=== PATIENT | female | born 1935 | race African-American/Black ===

== ENCOUNTER 2019-03-24 04:58 | Inpatient (IN) ==
[2019-03-24] MEDS ORDERED: FUROSEMIDE 100 MG/10 ML VIAL ONE (06:13)
[2019-03-24] MEDS ORDERED: FUROSEMIDE 100 MG/10 ML VIAL IV STA (06:21)
[2019-03-24 06:34] LABS: Basophils % 0.3 % (0.0-0.8); Eosinophils # 0.2 10*3/uL (0.0-0.87); Immature Granulocytes % 0.6 %; Immature Granulocytes Absolute 0.05 #; Lymphocytes # 2.8 10*3/uL (1.4-4.0); Lymphocytes % 35.7 % (21.3-54.2); Mean Corpuscular HGB Conc 29.5 GM/DL (32-36); Mean Corpuscular Volume 89.1 FL (87-102); Mean Platelet Volume 12.6 FL (9.6-12.0); Monocytes % 17.3 % (1.7-12.7); Neutrophils % 43.1 % (38.7-73.9); Platelet Count 174 T/CUMM (130-400); Red Blood Count 4.49 MC/CUMM (3.8-5.5); White Blood Count 7.8 T/CUMM (4-12)
[2019-03-24 06:38] LABS: Albumin 3.7 G/DL (3.4-5.0); Bilirubin,Total 0.5 MG/DL (0.2-1.0); Calcium 9.9 MG/DL (8.5-10.1); Osmolality,Calculated 283.4 MOS/KG (273-304); Total Protein 8.4 G/DL (6.4-8.3)
[2019-03-24 06:40] LABS: Hemoglobin 11.8 GM/DL (12.0-16.0)
[2019-03-24] MEDS ORDERED: NITROGLYCERIN 2% OINT 1 INCH/GM PACK TOP STA (06:50)
[2019-03-24] MEDS ORDERED: NITROGLYCERIN 2% OINT 1 INCH/GM PACK TOP ONE (06:51)
[2019-03-24 06:54] LABS: Eosinophils 2 % (0-10); Hypochromasia 1+; Lymphocytes 36 % (20-55); Platelet Estimate Adequate; Segmented Neutrophils 45 % (50-85); Total Cells Counted 100
[2019-03-24] MEDS ORDERED: LEVOFLOXACIN INJ 500 MG in PREMIX 1 EACH IV STA (07:30)
[2019-03-24] MEDS ORDERED: NALOXONE 0.4 MG/ML VIAL IV PRN (08:06)
[2019-03-24] MEDS ORDERED: MORPHINE 4 MG/1 ML VIAL IV PRN (08:06)
[2019-03-24] MEDS ORDERED: MORPHINE 4 MG/1 ML VIAL ONE (08:07)
[2019-03-24] MEDS ORDERED: ONDANSETRON 4 MG/2 ML VIAL ONE (08:07)
[2019-03-24] MEDS ORDERED: MORPHINE 4 MG/1 ML VIAL IV STA (08:12)
[2019-03-24] MEDS ORDERED: ONDANSETRON 4 MG/2 ML VIAL IV STA (08:12)
[2019-03-24] MEDS ORDERED: SODIUM CHLORIDE 0.9% 250 ML IV STA (08:24)
[2019-03-24] MEDS ORDERED: cloNIDine 0.1 MG TABLET PO SCH (09:00)
[2019-03-24] MEDS ORDERED: cloNIDine 0.1 MG TABLET ONE (09:30)
[2019-03-24] MEDS: DOCUSATE SODIUM 100 MG CAPSULE PO SCH ×2 (09:32→21:07)
[2019-03-24] MEDS: ENOXAPARIN 40 MG/0.4 ML SYRINGE SUBCUT SCH (09:32)
[2019-03-24] MEDS: PANTOPRAZOLE 40 MG TABLET PO SCH (09:32)
[2019-03-24] MEDS: amLODIPine 5 MG TABLET PO SCH (09:32)
[2019-03-24] MEDS: DORZOLAMIDE 2% OPH SOLN 10 ML BOTTLE BOTH EYES SCH ×3 (10:15→21:10)
[2019-03-24] MEDS: BRIMONIDINE 0.2% OPH SOLN 5 ML BOTTLE BOTH EYES SCH ×2 (10:15→21:10)
[2019-03-24 10:43] LABS: Troponin I < 0.015 NG/ML (0.00-0.045)
[2019-03-24 11:44] LABS: Apearance,Urine Cloudy (Clear); Urine Color Red (Yellow)
[2019-03-24 11:45] LABS: Bilirubin,Urine Negative (Negative); Blood, Urine Large mg/dL (Negative); Glucose,Urine (UA) Negative (Negative); Ketones,Urine Negative (Negative); Nitrite,Urine Negative (Negative); Protein,Urine 2+ MG/DL; RBC,Urine TNTC /HPF (0-4); Urine Specific Gravity 1.015 (1.001-1.035); Urine Urobilinogen < 2.0 EU/DL (0.2-1.0); WBC,Urine Occasional /HPF (0-6)
[2019-03-24 11:46] LABS: Bacteria,Urine Few /HPF (Few); Squamous Epithelial Cell,Urine Rare /HPF (0-10)
[2019-03-24] MEDS ORDERED: FUROSEMIDE 40 MG/4 ML VIAL ONE (14:49)
[2019-03-24 15:06] LABS: Troponin I < 0.015 NG/ML (0.00-0.045)
[2019-03-24] MEDS: ONDANSETRON 4 MG/2 ML VIAL IV PRN (15:06)
[2019-03-24] MEDS: FUROSEMIDE 40 MG/4 ML VIAL IV SCH (15:08)
[2019-03-24] MEDS ORDERED: LORazepam 2 MG/1 ML VIAL IV PRN (16:11)
[2019-03-24] MEDS: ALBUTEROL 2.5 MG/3 ML NEB RESP TX PRN ×2 (17:05→20:25)
[2019-03-24] MEDS: methylPREDNISolone SOD SUC 40 MG/1 ML VIAL IV SCH (17:38)
[2019-03-24 18:14] LABS: Troponin I < 0.015 NG/ML (0.00-0.045)
[2019-03-24] MEDS: ALBUTEROL/IPRATROPIUM 3 ML NEB RESP TX SCH (23:55)
[2019-03-25] MEDS: methylPREDNISolone SOD SUC 40 MG/1 ML VIAL IV SCH ×3 (01:28→17:40)
[2019-03-25] MEDS: ALBUTEROL/IPRATROPIUM 3 ML NEB RESP TX SCH ×2 (03:40→07:25)
[2019-03-25 05:18] LABS: Calcium 9.2 MG/DL (8.5-10.1); Osmolality,Calculated 293.4 MOS/KG (273-304); Risk Ratio 2.01; VLDL CHOLESTEROL 16.2 MG/DL
[2019-03-25] MEDS: ENOXAPARIN 40 MG/0.4 ML SYRINGE SUBCUT SCH (10:02)
[2019-03-25] MEDS: DOCUSATE SODIUM 100 MG CAPSULE PO SCH ×2 (10:03→21:13)
[2019-03-25] MEDS: PANTOPRAZOLE 40 MG TABLET PO SCH (10:03)
[2019-03-25] MEDS: amLODIPine 5 MG TABLET PO SCH (10:03)
[2019-03-25] MEDS: BRIMONIDINE 0.2% OPH SOLN 5 ML BOTTLE BOTH EYES SCH ×2 (10:05→21:14)
[2019-03-25] MEDS: DORZOLAMIDE 2% OPH SOLN 10 ML BOTTLE BOTH EYES SCH ×3 (10:05→21:14)
[2019-03-25] MEDS: FUROSEMIDE 40 MG/4 ML VIAL IV SCH ×2 (10:14→17:37)
[2019-03-25] MEDS: ACETAMINOPHEN 325 MG TABLET PO PRN (21:14)
[2019-03-25] MEDS: ONDANSETRON 4 MG/2 ML VIAL IV PRN (21:15)
[2019-03-26] MEDS: methylPREDNISolone SOD SUC 40 MG/1 ML VIAL IV SCH ×4 (03:02→21:35)
[2019-03-26 05:40] LABS: Basophils % 0.2 % (0.0-0.8); Hematocrit 39.3 VOL% (35.7-47.0); Hemoglobin 11.7 GM/DL (12.0-16.0); Immature Granulocytes % 0.7 %; Immature Granulocytes Absolute 0.09 #; Lymphocytes # 0.9 10*3/uL (1.4-4.0); Lymphocytes % 7.5 % (21.3-54.2); Mean Corpuscular HGB Conc 29.8 GM/DL (32-36); Mean Corpuscular Volume 89.1 FL (87-102); Mean Platelet Volume 12.3 FL (9.6-12.0); Monocytes % 5.4 % (1.7-12.7); Neutrophils % 86.2 % (38.7-73.9); Platelet Count 196 T/CUMM (130-400); Red Blood Count 4.41 MC/CUMM (3.8-5.5); Red Cell Distribution Width 12.9 % (9.3-17.3); White Blood Count 12.2 T/CUMM (4-12)
[2019-03-26 05:50] LABS: Calcium 9.4 MG/DL (8.5-10.1); Osmolality,Calculated 289.8 MOS/KG (273-304)
[2019-03-26] MEDS: ENOXAPARIN 30 MG/0.3 ML SYRINGE SUBCUT SCH (09:14)
[2019-03-26] MEDS: amLODIPine 5 MG TABLET PO SCH (09:14)
[2019-03-26] MEDS: PANTOPRAZOLE 40 MG TABLET PO SCH (09:14)
[2019-03-26] MEDS: DOCUSATE SODIUM 100 MG CAPSULE PO SCH ×2 (09:14→21:36)
[2019-03-26] MEDS: FUROSEMIDE 40 MG/4 ML VIAL IV SCH (09:15)
[2019-03-26] MEDS: DORZOLAMIDE 2% OPH SOLN 10 ML BOTTLE BOTH EYES SCH ×3 (09:15→21:36)
[2019-03-26] MEDS: BRIMONIDINE 0.2% OPH SOLN 5 ML BOTTLE BOTH EYES SCH ×2 (09:15→21:36)
[2019-03-26] MEDS: ALBUTEROL 2.5 MG/3 ML NEB RESP TX PRN (10:40)
[2019-03-26 11:34] LABS: ABG Base Excess 5.2 MMOL/L (-2.5-2.5); ABG HCO3 28.9 MMOL/L (20-26); ABG Oxygen Saturation 84.6 % (95-100); ABG PCO2 65.7 MM HG (35-48); ABG PH 7.317 (7.35-7.45); ABG PO2 51.1 MM HG (80-95); ABG TCO2 30.3 MMOL/L (23-27)
[2019-03-26] MEDS: ALBUTEROL/IPRATROPIUM 3 ML NEB RESP TX SCH ×3 (11:37→19:00)
[2019-03-26] MEDS: SODIUM CHLORIDE 0.9% 1,000 ML IV SCH (13:49)
[2019-03-26] MEDS: BUDESONIDE 0.25 MG/2 ML NEB RESP TX SCH (19:00)
[2019-03-27] MEDS: ALBUTEROL/IPRATROPIUM 3 ML NEB RESP TX SCH ×4 (00:31→19:14)
[2019-03-27 04:36] LABS: Basophils % 0.2 % (0.0-0.8); Hemoglobin 10.6 GM/DL (12.0-16.0); Immature Granulocytes % 1.2 %; Immature Granulocytes Absolute 0.11 #; Lymphocytes # 0.8 10*3/uL (1.4-4.0); Lymphocytes % 8.2 % (21.3-54.2); Mean Corpuscular HGB Conc 30.3 GM/DL (32-36); Mean Corpuscular Volume 88.8 FL (87-102); Mean Platelet Volume 12.5 FL (9.6-12.0); Monocytes % 4.6 % (1.7-12.7); Neutrophils % 85.8 % (38.7-73.9); Platelet Count 183 T/CUMM (130-400); Red Blood Count 3.94 MC/CUMM (3.8-5.5); Red Cell Distribution Width 13.1 % (9.3-17.3); White Blood Count 9.5 T/CUMM (4-12)
[2019-03-27 05:01] LABS: Calcium 9.3 MG/DL (8.5-10.1); Osmolality,Calculated 304.7 MOS/KG (273-304)
[2019-03-27] MEDS: ACETAMINOPHEN 325 MG TABLET PO PRN ×2 (05:02→21:30)
[2019-03-27] MEDS: SODIUM CHLORIDE 0.9% 1,000 ML IV SCH ×2 (05:05→21:35)
[2019-03-27] MEDS ORDERED: DEXTROSE 50% 25 GM/50 ML VIAL IV PRN (05:28)
[2019-03-27] MEDS ORDERED: GLUCAGON 1 MG VIAL IM PRN (05:28)
[2019-03-27] MEDS: methylPREDNISolone SOD SUC 40 MG/1 ML VIAL IV SCH ×3 (05:41→21:31)
[2019-03-27 05:54] LABS: Alanine Aminotransferase 31 U/L (13-56); Alkaline Phosphatase 61 U/L (45-117); Aspartate Amino Transferase 46 U/L (0-37); Bilirubin,Total < 0.39 MG/DL (0.2-1.0); Blood Urea Nitrogen 68 MG/DL (7-18); Glucose 276 MG/DL (74-106)
[2019-03-27] MEDS: BUDESONIDE 0.25 MG/2 ML NEB RESP TX SCH ×2 (07:03→19:14)
[2019-03-27] MEDS: ENOXAPARIN 30 MG/0.3 ML SYRINGE SUBCUT SCH (08:50)
[2019-03-27] MEDS: amLODIPine 5 MG TABLET PO SCH (08:51)
[2019-03-27] MEDS: DORZOLAMIDE 2% OPH SOLN 10 ML BOTTLE BOTH EYES SCH ×3 (08:51→21:43)
[2019-03-27] MEDS: DOCUSATE SODIUM 100 MG CAPSULE PO SCH ×2 (08:51→21:30)
[2019-03-27] MEDS: BRIMONIDINE 0.2% OPH SOLN 5 ML BOTTLE BOTH EYES SCH ×3 (08:51→21:43)
[2019-03-27] MEDS: FUROSEMIDE 40 MG/4 ML VIAL IV SCH (08:51)
[2019-03-27] MEDS: PANTOPRAZOLE 40 MG TABLET PO SCH (08:51)
[2019-03-27] MEDS: INSULIN REGULAR 100 UNIT/ML SUBCUT SCH ×4 (09:10→21:31)
[2019-03-27 10:24] LABS: ABG PH 7.278 (7.35-7.45); ABG PO2 86.5 MM HG (80-95); ABG TCO2 30.1 MMOL/L (23-27)
[2019-03-27 10:26] LABS: ABG PCO2 70.7 MM HG (35-48)
[2019-03-27] MEDS: ONDANSETRON 4 MG/2 ML VIAL IV PRN (21:35)
[2019-03-28] MEDS: ALBUTEROL/IPRATROPIUM 3 ML NEB RESP TX SCH ×4 (00:51→19:23)
[2019-03-28 04:57] LABS: ABG Base Excess 3.9 MMOL/L (-2.5-2.5); ABG HCO3 27.6 MMOL/L (20-26); ABG PH 7.224 (7.35-7.45); ABG PO2 55.8 MM HG (80-95); ABG TCO2 31.9 MMOL/L (23-27); Allen Test Positive
[2019-03-28 05:07] LABS: ABG PCO2 83.9 MM HG (35-48)
[2019-03-28] MEDS: methylPREDNISolone SOD SUC 40 MG/1 ML VIAL IV SCH ×4 (05:32→23:34)
[2019-03-28 05:50] LABS: Osmolality,Calculated 310.8 MOS/KG (273-304)
[2019-03-28 06:22] LABS: Basophils % 0.2 % (0.0-0.8); Hematocrit 35.8 VOL% (35.7-47.0); Hemoglobin 10.6 GM/DL (12.0-16.0); Immature Granulocytes % 2.1 %; Immature Granulocytes Absolute 0.24 #; Lymphocytes # 0.8 10*3/uL (1.4-4.0); Lymphocytes % 6.7 % (21.3-54.2); Mean Corpuscular HGB Conc 29.6 GM/DL (32-36); Mean Corpuscular Volume 90.2 FL (87-102); Monocytes % 4.4 % (1.7-12.7); Neutrophils % 86.6 % (38.7-73.9); Platelet Count 178 T/CUMM (130-400); Red Blood Count 3.97 MC/CUMM (3.8-5.5); Red Cell Distribution Width 13.1 % (9.3-17.3); White Blood Count 11.3 T/CUMM (4-12)
[2019-03-28 06:27] LABS: Hypochromasia 1+; Ovalocytes Slight; Platelet Estimate Adequate
[2019-03-28 07:44] VITALS: BP 160/97
[2019-03-28] MEDS: BUDESONIDE 0.25 MG/2 ML NEB RESP TX SCH ×2 (07:49→19:23)
[2019-03-28] MEDS: INSULIN REGULAR 100 UNIT/ML SUBCUT SCH ×4 (08:20→20:44)
[2019-03-28] MEDS: FUROSEMIDE 40 MG/4 ML VIAL IV SCH (08:20)
[2019-03-28] MEDS: ENOXAPARIN 30 MG/0.3 ML SYRINGE SUBCUT SCH (08:21)
[2019-03-28] MEDS: DORZOLAMIDE 2% OPH SOLN 10 ML BOTTLE BOTH EYES SCH ×3 (08:21→20:44)
[2019-03-28] MEDS: PANTOPRAZOLE 40 MG TABLET PO SCH (08:21)
[2019-03-28] MEDS: DOCUSATE SODIUM 100 MG CAPSULE PO SCH ×2 (08:21→20:43)
[2019-03-28] MEDS: BRIMONIDINE 0.2% OPH SOLN 5 ML BOTTLE BOTH EYES SCH ×2 (08:21→22:19)
[2019-03-28] MEDS: amLODIPine 5 MG TABLET PO SCH (08:21)
[2019-03-28] MEDS: ACETAMINOPHEN 325 MG TABLET PO PRN (08:23)
[2019-03-28] MEDS: CIPROFLOXACIN INJ 400 MG in PREMIX 1 EACH IV SCH (11:54)
[2019-03-28] MEDS: SODIUM CHLORIDE 0.9% 1,000 ML IV SCH (19:08)
[2019-03-29] MEDS: ALBUTEROL/IPRATROPIUM 3 ML NEB RESP TX SCH ×3 (01:03→12:12)
[2019-03-29] MEDS: SODIUM CHLORIDE 0.9% 1,000 ML IV SCH ×2 (03:36→10:07)
[2019-03-29 04:51] LABS: ABG HCO3 29.6 MMOL/L (20-26); ABG Oxygen Saturation 82.2 % (95-100); ABG PCO2 60.8 MM HG (35-48); ABG PH 7.349 (7.35-7.45); ABG PO2 48.5 MM HG (80-95); ABG TCO2 30.4 MMOL/L (23-27); Allen Test Positive; Pt O2 Delivery Device BIPAP
[2019-03-29] MEDS: methylPREDNISolone SOD SUC 40 MG/1 ML VIAL IV SCH ×2 (06:17→11:32)
[2019-03-29] MEDS ORDERED: cloNIDine 0.1 MG TABLET PO ONE (06:21)
[2019-03-29] MEDS: BUDESONIDE 0.25 MG/2 ML NEB RESP TX SCH (07:16)
[2019-03-29] MEDS: FUROSEMIDE 40 MG/4 ML VIAL IV SCH (08:32)
[2019-03-29] MEDS: INSULIN REGULAR 100 UNIT/ML SUBCUT SCH ×2 (08:32→11:33)
[2019-03-29] MEDS: ENOXAPARIN 30 MG/0.3 ML SYRINGE SUBCUT SCH (08:32)
[2019-03-29] MEDS: DOCUSATE SODIUM 100 MG CAPSULE PO SCH (08:33)
[2019-03-29] MEDS: DORZOLAMIDE 2% OPH SOLN 10 ML BOTTLE BOTH EYES SCH (08:33)
[2019-03-29] MEDS: BRIMONIDINE 0.2% OPH SOLN 5 ML BOTTLE BOTH EYES SCH (08:33)
[2019-03-29] MEDS: amLODIPine 5 MG TABLET PO SCH (08:33)
[2019-03-29] MEDS: PANTOPRAZOLE 40 MG TABLET PO SCH (08:33)
[2019-03-29] MEDS: CIPROFLOXACIN INJ 400 MG in PREMIX 1 EACH IV SCH (11:33)
== END 2019-03-29 15:20 | DRG 190 ==
LOC: EDUNIT# → EDBD → N.ED 04:58 → N.EDINP 08:06 → N.TELEN 10:11 → N.CC 03-28 09:05
PROVIDERS: ADMIT Family Medicine; ATTEND Family Medicine

== ENCOUNTER 2019-04-27 15:50 | Inpatient (IN) ==
[2019-04-27] MEDS ORDERED: ONDANSETRON 4 MG/2 ML VIAL ONE (16:25)
[2019-04-27] MEDS ORDERED: ONDANSETRON 4 MG/2 ML VIAL IV STA (16:30)
[2019-04-27 16:55] LABS: Basophils % 0.5 % (0.0-0.8); Eosinophils # 0.1 10*3/uL (0.0-0.87); Eosinophils % 0.8 % (0.00-10.9); Hematocrit 38.7 VOL% (35.7-47.0); Hemoglobin 11.6 GM/DL (12.0-16.0); Immature Granulocytes % 2.5 %; Lymphocytes # 1.1 10*3/uL (1.4-4.0); Lymphocytes % 14.3 % (21.3-54.2); Mean Corpuscular Volume 89.8 FL (87-102); Mean Platelet Volume 11.8 FL (9.6-12.0); Monocytes % 13.7 % (1.7-12.7); Neutrophils % 68.2 % (38.7-73.9); Platelet Count 239 T/CUMM (130-400); Red Blood Count 4.31 MC/CUMM (3.8-5.5); Red Cell Distribution Width 13.3 % (9.3-17.3); White Blood Count 7.9 T/CUMM (4-12)
[2019-04-27 17:03] LABS: INR 1.1; PT Patient Result 11.8 SECS (9.6-12.2); Partial Thromboplastin Time 24.5 SECS (20.8-36.0)
[2019-04-27 17:18] LABS: Allen Test Positive
[2019-04-27 17:19] LABS: Bilirubin,Total 0.5 MG/DL (0.2-1.0); Calcium 9.4 MG/DL (8.5-10.1); Total Protein 6.9 G/DL (6.4-8.3)
[2019-04-27 17:20] LABS: ABG HCO3 34.2 MMOL/L (20-26); ABG Oxygen Saturation 85.6 % (95-100); ABG PCO2 62.3 MM HG (35-48); ABG PH 7.358 (7.35-7.45); ABG PO2 54.5 MM HG (80-95); ABG TCO2 36.2 MMOL/L (23-27)
[2019-04-27 17:21] LABS: Troponin I 0.116 NG/ML (0.00-0.045)
[2019-04-27] MEDS ORDERED: ALBUTEROL/IPRATROPIUM 3 ML NEB RESP TX STA (21:12)
[2019-04-27] MEDS ORDERED: MAGNESIUM SULF RIDER 2 GM in PREMIX 1 EACH IV ONE (21:12)
[2019-04-27] MEDS ORDERED: POTASSIUM CHLORIDE 20 MEQ TABLET PO ONE (21:12)
[2019-04-27] MEDS ORDERED: DOCUSATE SODIUM 100 MG CAPSULE PO SCH (21:12)
[2019-04-27] MEDS ORDERED: METOPROLOL TARTRATE 25 MG TABLET PO STA (21:12)
[2019-04-27 22:29] LABS: Troponin I 0.096 NG/ML (0.00-0.045)
[2019-04-27] MEDS: MELATONIN 3 MG TABLET PO SCH (22:57)
[2019-04-27] MEDS: DOCUSATE SODIUM 100 MG CAPSULE PO SCH (22:58)
[2019-04-27] MEDS: SODIUM CHLORIDE 0.9% 1,000 ML IV SCH (22:59)
[2019-04-27] MEDS: DORZOLAMIDE 2% OPH SOLN 10 ML BOTTLE BOTH EYES SCH (23:12)
[2019-04-27] MEDS: BRIMONIDINE 0.2% OPH SOLN 5 ML BOTTLE BOTH EYES SCH (23:12)
[2019-04-28] MEDS: ALBUTEROL/IPRATROPIUM 3 ML NEB RESP TX SCH ×4 (01:09→19:29)
[2019-04-28 03:46] LABS: ABG Base Excess 6.1 MMOL/L (-2.5-2.5); ABG HCO3 29.8 MMOL/L (20-26); ABG Oxygen Saturation 91.8 % (95-100); ABG PCO2 60.8 MM HG (35-48); ABG PH 7.347 (7.35-7.45); ABG PO2 65.1 MM HG (80-95); ABG TCO2 30.7 MMOL/L (23-27); Allen Test Positive
[2019-04-28 05:44] LABS: Calcium 9.2 MG/DL (8.5-10.1); Osmolality,Calculated 290.1 MOS/KG (273-304)
[2019-04-28] MEDS: SODIUM CHLORIDE 0.9% 1,000 ML IV SCH ×3 (06:18→15:31)
[2019-04-28] MEDS: METOPROLOL TARTRATE 25 MG TABLET PO SCH ×2 (09:32→22:31)
[2019-04-28] MEDS: PANTOPRAZOLE 40 MG TABLET PO SCH (09:32)
[2019-04-28] MEDS: DOCUSATE SODIUM 100 MG CAPSULE PO SCH ×2 (09:32→22:31)
[2019-04-28] MEDS: POTASSIUM CHLORIDE 20 MEQ TABLET PO SCH ×2 (09:32→22:31)
[2019-04-28] MEDS: BRIMONIDINE 0.2% OPH SOLN 5 ML BOTTLE BOTH EYES SCH ×2 (09:33→22:30)
[2019-04-28] MEDS: DORZOLAMIDE 2% OPH SOLN 10 ML BOTTLE BOTH EYES SCH ×3 (09:33→22:30)
[2019-04-28] MEDS ORDERED: ENOXAPARIN 80 MG/0.8 ML SYRINGE SUBCUT SCH (14:00)
[2019-04-28 14:41] LABS: Troponin I 0.042 NG/ML (0.00-0.045)
[2019-04-28 16:50] LABS: Troponin I 0.049 NG/ML (0.00-0.045)
[2019-04-28 17:41] LABS: Apearance,Urine Clear (Clear); Protein,Urine 30 MG/DL; Urine Color Yellow (Yellow); Urine Specific Gravity 1.025 (1.001-1.035)
[2019-04-28 17:42] LABS: Bilirubin,Urine Negative (Negative); Blood, Urine Negative (Negative); Glucose,Urine (UA) Negative (Negative); Ketones,Urine Negative (Negative); Nitrite,Urine Negative (Negative)
[2019-04-28 17:43] LABS: Bacteria,Urine Occasional /HPF (Few); RBC,Urine 0-1 /HPF (0-4); WBC,Urine 0-1 /HPF (0-6)
[2019-04-28 19:29] LABS: Troponin I 0.052 NG/ML (0.00-0.045)
[2019-04-28] MEDS: MELATONIN 3 MG TABLET PO SCH (22:30)
[2019-04-29] MEDS: ACETAMINOPHEN 325 MG TABLET PO PRN (00:43)
[2019-04-29] MEDS: SODIUM CHLORIDE 0.9% 1,000 ML IV SCH ×5 (00:47→21:59)
[2019-04-29] MEDS: ALBUTEROL/IPRATROPIUM 3 ML NEB RESP TX SCH ×4 (01:02→19:41)
[2019-04-29 06:06] LABS: Calcium 8.2 MG/DL (8.5-10.1)
[2019-04-29 06:35] LABS: Basophils % 0.6 % (0.0-0.8); Eosinophils # 0.1 10*3/uL (0.0-0.87); Hematocrit 31.2 VOL% (35.7-47.0); Immature Granulocytes % 4.1 %; Immature Granulocytes Absolute 0.29 #; Lymphocytes # 1.5 10*3/uL (1.4-4.0); Lymphocytes % 21.4 % (21.3-54.2); Mean Corpuscular HGB Conc 28.8 GM/DL (32-36); Mean Corpuscular Volume 93.4 FL (87-102); Mean Platelet Volume 12.4 FL (9.6-12.0); Monocytes % 15.5 % (1.7-12.7); NRBC # 0.02 10*3/uL; Neutrophils % 57.4 % (38.7-73.9); Platelet Count 201 T/CUMM (130-400); Red Blood Count 3.34 MC/CUMM (3.8-5.5); Red Cell Distribution Width 13.5 % (9.3-17.3); White Blood Count 7.2 T/CUMM (4-12)
[2019-04-29 06:40] LABS: Hypochromasia 1+; Ovalocytes Slight; Platelet Estimate Adequate
[2019-04-29] MEDS: DOCUSATE SODIUM 100 MG CAPSULE PO SCH ×2 (09:42→21:02)
[2019-04-29] MEDS: POTASSIUM CHLORIDE 20 MEQ TABLET PO SCH ×2 (09:42→21:02)
[2019-04-29] MEDS: METOPROLOL TARTRATE 25 MG TABLET PO SCH (09:42)
[2019-04-29] MEDS: PANTOPRAZOLE 40 MG TABLET PO SCH (09:42)
[2019-04-29] MEDS: DORZOLAMIDE 2% OPH SOLN 10 ML BOTTLE BOTH EYES SCH ×3 (09:42→21:03)
[2019-04-29] MEDS: BRIMONIDINE 0.2% OPH SOLN 5 ML BOTTLE BOTH EYES SCH ×2 (09:42→21:03)
[2019-04-29] MEDS: APIXABAN 2.5 MG TABLET PO SCH ×2 (09:46→21:02)
[2019-04-29] MEDS ORDERED: METOPROLOL TARTRATE 25 MG TABLET PO SCH (21:00)
[2019-04-29] MEDS: MELATONIN 3 MG TABLET PO SCH (21:02)
[2019-04-30] MEDS: ALBUTEROL/IPRATROPIUM 3 ML NEB RESP TX SCH ×4 (01:09→19:47)
[2019-04-30] MEDS ORDERED: LACTULOSE 20 GM/30 ML UDCUP PO ONE (03:49)
[2019-04-30 05:00] LABS: Calcium 8.6 MG/DL (8.5-10.1); Osmolality,Calculated 294.8 MOS/KG (273-304)
[2019-04-30] MEDS: SODIUM CHLORIDE 0.9% 1,000 ML IV SCH ×2 (05:00→19:00)
[2019-04-30 05:16] LABS: Basophils # 0.1 10*3/uL (0.0-0.2); Basophils % 1.3 % (0.0-0.8); Eosinophils # 0.1 10*3/uL (0.0-0.87); Eosinophils % 1.3 % (0.00-10.9); Hematocrit 37.5 VOL% (35.7-47.0); Hemoglobin 10.4 GM/DL (12.0-16.0); Immature Granulocytes % 6.6 %; Immature Granulocytes Absolute 0.45 #; Lymphocytes # 1.4 10*3/uL (1.4-4.0); Lymphocytes % 20.9 % (21.3-54.2); Mean Corpuscular HGB Conc 27.7 GM/DL (32-36); Mean Corpuscular Volume 96.4 FL (87-102); Mean Platelet Volume 11.8 FL (9.6-12.0); Monocytes % 13.8 % (1.7-12.7); NRBC # 0.02 10*3/uL; Neutrophils % 56.1 % (38.7-73.9); Platelet Count 224 T/CUMM (130-400); Red Blood Count 3.89 MC/CUMM (3.8-5.5); Red Cell Distribution Width 13.7 % (9.3-17.3); White Blood Count 6.8 T/CUMM (4-12)
[2019-04-30 06:18] LABS: Band Neutrophils 3 % (0-10); Lymphocytes 32 % (20-55); Myelocytes 2 %; Segmented Neutrophils 53 % (50-85); Total Cells Counted 100
[2019-04-30 06:19] LABS: Anisocytosis 1+; Ovalocytes 1+; Platelet Estimate Adequate
[2019-04-30 06:48] LABS: Osmolality,Calculated 292.8 MOS/KG (273-304)
[2019-04-30] MEDS: DOCUSATE SODIUM 100 MG CAPSULE PO SCH ×2 (09:46→23:25)
[2019-04-30] MEDS: predniSONE 20 MG TABLET PO SCH (09:46)
[2019-04-30] MEDS: APIXABAN 2.5 MG TABLET PO SCH ×2 (09:46→23:26)
[2019-04-30] MEDS: PANTOPRAZOLE 40 MG TABLET PO SCH (09:46)
[2019-04-30] MEDS: DORZOLAMIDE 2% OPH SOLN 10 ML BOTTLE BOTH EYES SCH ×3 (09:48→23:26)
[2019-04-30] MEDS: BRIMONIDINE 0.2% OPH SOLN 5 ML BOTTLE BOTH EYES SCH ×2 (09:48→23:25)
[2019-04-30] MEDS: LORazepam 2 MG/1 ML VIAL IV PRN ×2 (12:39→19:05)
[2019-04-30 16:31] LABS: ABG Base Excess -2.4 MMOL/L (-2.5-2.5); ABG HCO3 22.3 MMOL/L (20-26); ABG Oxygen Saturation 92.3 % (95-100); ABG PCO2 72.7 MM HG (35-48); ABG PO2 68.5 MM HG (80-95); ABG TCO2 25.7 MMOL/L (23-27); Allen Test Positive
[2019-04-30 16:34] LABS: ABG PH 7.188 (7.35-7.45)
[2019-04-30 18:18] LABS: ABG HCO3 22.7 MMOL/L (20-26); ABG TCO2 26.5 MMOL/L (23-27); Allen Test Positive; Pt O2 Delivery Device BIPAP
[2019-04-30 18:21] LABS: ABG PCO2 76.4 MM HG (35-48); ABG PH 7.178 (7.35-7.45)
[2019-04-30 20:40] LABS: ABG Base Excess -2.2 MMOL/L (-2.5-2.5); ABG HCO3 22.4 MMOL/L (20-26); ABG Oxygen Saturation 89.5 % (95-100); ABG TCO2 25.9 MMOL/L (23-27); Allen Test Positive; Pt O2 Delivery Device BIPAP
[2019-04-30 22:56] LABS: ABG Base Excess -1.5 MMOL/L (-2.5-2.5); ABG HCO3 23.1 MMOL/L (20-26); ABG PCO2 64.1 MM HG (35-48); ABG PH 7.239 (7.35-7.45); ABG PO2 68.9 MM HG (80-95); ABG TCO2 25.1 MMOL/L (23-27); Allen Test Positive; Pt O2 Delivery Device BIPAP
[2019-04-30] MEDS: MELATONIN 3 MG TABLET PO SCH (23:26)
[2019-05-01] MEDS: ALBUTEROL/IPRATROPIUM 3 ML NEB RESP TX SCH ×4 (00:22→19:18)
[2019-05-01 04:58] LABS: Basophils # 0.1 10*3/uL (0.0-0.2); Basophils % 0.8 % (0.0-0.8); Eosinophils % 0.1 % (0.00-10.9); Hematocrit 35.8 VOL% (35.7-47.0); Immature Granulocytes Absolute 0.43 #; Lymphocytes # 1.2 10*3/uL (1.4-4.0); Mean Corpuscular HGB Conc 28.5 GM/DL (32-36); Mean Corpuscular Volume 93.5 FL (87-102); Mean Platelet Volume 11.9 FL (9.6-12.0); Monocytes % 12.1 % (1.7-12.7); NRBC # 0.03 10*3/uL; Platelet Count 235 T/CUMM (130-400); Red Blood Count 3.83 MC/CUMM (3.8-5.5); Red Cell Distribution Width 13.4 % (9.3-17.3); White Blood Count 7.2 T/CUMM (4-12)
[2019-05-01 05:27] LABS: Osmolality,Calculated 293.1 MOS/KG (273-304)
[2019-05-01 05:30] LABS: Hemoglobin 10.4 GM/DL (12.0-16.0)
[2019-05-01 05:42] LABS: ABG Base Excess 0.3 MMOL/L (-2.5-2.5); ABG HCO3 24.7 MMOL/L (20-26); ABG Oxygen Saturation 96.2 % (95-100); ABG PCO2 58.4 MM HG (35-48); ABG PH 7.287 (7.35-7.45); ABG PO2 81.8 MM HG (80-95); ABG TCO2 25.8 MMOL/L (23-27); Pt O2 Delivery Device BIPAP
[2019-05-01 05:54] LABS: Anisocytosis 1+; Band Neutrophils 4 % (0-10); Lymphocytes 27 % (20-55); Metamyelocytes 1 %; Myelocytes 3 %; Segmented Neutrophils 58 % (50-85); Total Cells Counted 100
[2019-05-01 05:55] LABS: Acanthocytes 1+; Ovalocytes 1+; Platelet Estimate Adequate; Tear Drop Cells 1+
[2019-05-01] MEDS ORDERED: SODIUM POLYSTYRENE SULFATE 15 GM/60 ML BOTTLE PO STA (06:08)
[2019-05-01] MEDS: predniSONE 20 MG TABLET PO SCH (08:12)
[2019-05-01] MEDS: PANTOPRAZOLE 40 MG TABLET PO SCH (08:12)
[2019-05-01] MEDS: DOCUSATE SODIUM 100 MG CAPSULE PO SCH ×2 (08:12→21:19)
[2019-05-01] MEDS: APIXABAN 2.5 MG TABLET PO SCH ×2 (08:12→21:19)
[2019-05-01] MEDS: DORZOLAMIDE 2% OPH SOLN 10 ML BOTTLE BOTH EYES SCH ×3 (08:12→21:19)
[2019-05-01] MEDS: BRIMONIDINE 0.2% OPH SOLN 5 ML BOTTLE BOTH EYES SCH ×2 (08:13→21:19)
[2019-05-01] MEDS: FUROSEMIDE 40 MG TABLET PO SCH (11:46)
[2019-05-01 13:17] LABS: Calcium 9.2 MG/DL (8.5-10.1); Osmolality,Calculated 289.4 MOS/KG (273-304)
[2019-05-01] MEDS: LORazepam 2 MG/1 ML VIAL IV PRN (17:31)
[2019-05-01] MEDS: MELATONIN 3 MG TABLET PO SCH (21:19)
[2019-05-02] MEDS: ALBUTEROL/IPRATROPIUM 3 ML NEB RESP TX SCH ×4 (01:11→19:31)
[2019-05-02 04:50] LABS: Basophils # 0.1 10*3/uL (0.0-0.2); Basophils % 0.6 % (0.0-0.8); Eosinophils % 0.2 % (0.00-10.9); Hematocrit 31.8 VOL% (35.7-47.0); Hemoglobin 9.3 GM/DL (12.0-16.0); Immature Granulocytes % 3.7 %; Lymphocytes # 1.4 10*3/uL (1.4-4.0); Lymphocytes % 16.8 % (21.3-54.2); Mean Corpuscular HGB Conc 29.2 GM/DL (32-36); Mean Corpuscular Volume 91.9 FL (87-102); Mean Platelet Volume 11.2 FL (9.6-12.0); Monocytes % 11.5 % (1.7-12.7); NRBC # 0.07 10*3/uL; Neutrophils % 67.2 % (38.7-73.9); Platelet Count 255 T/CUMM (130-400); Red Blood Count 3.46 MC/CUMM (3.8-5.5); Red Cell Distribution Width 13.5 % (9.3-17.3)
[2019-05-02] MEDS: APIXABAN 2.5 MG TABLET PO SCH ×2 (08:27→20:43)
[2019-05-02] MEDS: PANTOPRAZOLE 40 MG TABLET PO SCH (08:27)
[2019-05-02] MEDS: DOCUSATE SODIUM 100 MG CAPSULE PO SCH ×2 (08:27→20:43)
[2019-05-02] MEDS: predniSONE 20 MG TABLET PO SCH (08:27)
[2019-05-02] MEDS: FUROSEMIDE 40 MG TABLET PO SCH (08:27)
[2019-05-02] MEDS: BRIMONIDINE 0.2% OPH SOLN 5 ML BOTTLE BOTH EYES SCH ×2 (08:28→20:46)
[2019-05-02] MEDS: DORZOLAMIDE 2% OPH SOLN 10 ML BOTTLE BOTH EYES SCH ×3 (08:28→20:46)
[2019-05-02] MEDS: MELATONIN 3 MG TABLET PO SCH (20:42)
[2019-05-03] MEDS: ALBUTEROL/IPRATROPIUM 3 ML NEB RESP TX SCH ×4 (00:30→20:24)
[2019-05-03] MEDS: APIXABAN 2.5 MG TABLET PO SCH ×2 (09:21→20:09)
[2019-05-03] MEDS: THEOPHYLLINE ER (24 HR) 400 MG CAPSULE PO SCH (09:22)
[2019-05-03] MEDS: predniSONE 20 MG TABLET PO SCH (09:22)
[2019-05-03] MEDS: DOCUSATE SODIUM 100 MG CAPSULE PO SCH ×2 (09:22→20:09)
[2019-05-03] MEDS: FUROSEMIDE 40 MG TABLET PO SCH (09:23)
[2019-05-03] MEDS: CARVEDILOL 3.125 MG TABLET PO SCH ×2 (09:23→20:09)
[2019-05-03] MEDS: PANTOPRAZOLE 40 MG TABLET PO SCH (09:23)
[2019-05-03] MEDS: BRIMONIDINE 0.2% OPH SOLN 5 ML BOTTLE BOTH EYES SCH ×2 (09:24→20:10)
[2019-05-03] MEDS: DORZOLAMIDE 2% OPH SOLN 10 ML BOTTLE BOTH EYES SCH ×3 (09:25→20:11)
[2019-05-03] MEDS: BUDESONIDE 0.5 MG/2 ML NEB RESP TX SCH ×2 (10:20→20:24)
[2019-05-03] MEDS: ARFORMOTEROL 15 MCG/2 ML NEB RESP TX SCH ×2 (10:20→20:24)
[2019-05-03] MEDS: MELATONIN 3 MG TABLET PO SCH (20:09)
[2019-05-03] MEDS: ONDANSETRON 4 MG/2 ML VIAL IV PRN (22:53)
[2019-05-04] MEDS: ALBUTEROL/IPRATROPIUM 3 ML NEB RESP TX SCH ×5 (02:00→20:05)
[2019-05-04] MEDS: BUDESONIDE 0.5 MG/2 ML NEB RESP TX SCH ×3 (07:40→20:05)
[2019-05-04] MEDS: ARFORMOTEROL 15 MCG/2 ML NEB RESP TX SCH ×3 (07:40→20:05)
[2019-05-04] MEDS ORDERED: TUBERCULIN SKIN TEST 0.1 ML SYRINGE INTRADERM ONE (08:03)
[2019-05-04] MEDS: APIXABAN 2.5 MG TABLET PO SCH ×2 (09:53→22:02)
[2019-05-04] MEDS: DOCUSATE SODIUM 100 MG CAPSULE PO SCH ×2 (09:54→22:02)
[2019-05-04] MEDS: predniSONE 20 MG TABLET PO SCH (09:55)
[2019-05-04] MEDS: THEOPHYLLINE ER (24 HR) 400 MG CAPSULE PO SCH (09:56)
[2019-05-04] MEDS: PANTOPRAZOLE 40 MG TABLET PO SCH (09:57)
[2019-05-04] MEDS: FUROSEMIDE 40 MG TABLET PO SCH (09:57)
[2019-05-04] MEDS: CARVEDILOL 3.125 MG TABLET PO SCH ×2 (09:57→22:01)
[2019-05-04] MEDS: DORZOLAMIDE 2% OPH SOLN 10 ML BOTTLE BOTH EYES SCH ×3 (10:00→22:05)
[2019-05-04] MEDS: BRIMONIDINE 0.2% OPH SOLN 5 ML BOTTLE BOTH EYES SCH ×2 (10:00→22:05)
[2019-05-04] MEDS: ONDANSETRON 4 MG/2 ML VIAL IV PRN (17:13)
[2019-05-04] MEDS ORDERED: DEXTROSE 50% 25 GM/50 ML VIAL IV PRN ×2 (21:13→21:14)
[2019-05-04] MEDS ORDERED: GLUCAGON 1 MG VIAL IM PRN ×2 (21:13→21:14)
[2019-05-04] MEDS ORDERED: INSULIN REGULAR 100 UNIT/ML SUBCUT ONE (21:51)
[2019-05-04] MEDS: MELATONIN 3 MG TABLET PO SCH (22:01)
[2019-05-05] MEDS: INSULIN REGULAR 100 UNIT/ML SUBCUT SCH ×5 (01:20→22:02)
[2019-05-05] MEDS: ALBUTEROL/IPRATROPIUM 3 ML NEB RESP TX SCH ×4 (01:48→20:03)
[2019-05-05] MEDS: ARFORMOTEROL 15 MCG/2 ML NEB RESP TX SCH ×2 (06:55→20:03)
[2019-05-05] MEDS: BUDESONIDE 0.5 MG/2 ML NEB RESP TX SCH ×2 (06:55→20:03)
[2019-05-05] MEDS: DOCUSATE SODIUM 100 MG CAPSULE PO SCH ×2 (08:07→21:47)
[2019-05-05] MEDS: predniSONE 20 MG TABLET PO SCH (08:07)
[2019-05-05] MEDS: PANTOPRAZOLE 40 MG TABLET PO SCH (08:07)
[2019-05-05] MEDS: THEOPHYLLINE ER 300 MG TABLET PO SCH ×2 (08:07→17:07)
[2019-05-05] MEDS: APIXABAN 2.5 MG TABLET PO SCH ×2 (08:07→21:45)
[2019-05-05] MEDS: DORZOLAMIDE 2% OPH SOLN 10 ML BOTTLE BOTH EYES SCH ×3 (08:08→21:59)
[2019-05-05] MEDS: FUROSEMIDE 40 MG TABLET PO SCH (08:08)
[2019-05-05] MEDS: CARVEDILOL 3.125 MG TABLET PO SCH ×2 (08:08→21:46)
[2019-05-05] MEDS: BRIMONIDINE 0.2% OPH SOLN 5 ML BOTTLE BOTH EYES SCH ×2 (08:08→21:58)
[2019-05-05] MEDS: ACETAMINOPHEN 325 MG TABLET PO PRN (11:31)
[2019-05-05] MEDS: ONDANSETRON 4 MG/2 ML VIAL IV PRN ×2 (15:30→23:37)
[2019-05-05] MEDS ORDERED: INSULIN GLARGINE 100 UNIT/ML SUBCUT SCH (21:00)
[2019-05-05] MEDS: MELATONIN 3 MG TABLET PO SCH (21:56)
[2019-05-06] MEDS ORDERED: ALUM/MAG/SIMETH/LIDO VISC 1:1 30 ML BOTTLE PO ONE (00:21)
[2019-05-06] MEDS: ALBUTEROL/IPRATROPIUM 3 ML NEB RESP TX SCH ×2 (00:55→07:21)
[2019-05-06] MEDS: ARFORMOTEROL 15 MCG/2 ML NEB RESP TX SCH (07:21)
[2019-05-06] MEDS: BUDESONIDE 0.5 MG/2 ML NEB RESP TX SCH (07:21)
[2019-05-06 07:45] VITALS: BP 144/85
[2019-05-06] MEDS: INSULIN REGULAR 100 UNIT/ML SUBCUT SCH ×2 (08:53→11:59)
[2019-05-06] MEDS: FUROSEMIDE 40 MG TABLET PO SCH (08:55)
[2019-05-06] MEDS: DOCUSATE SODIUM 100 MG CAPSULE PO SCH (08:55)
[2019-05-06] MEDS: PANTOPRAZOLE 40 MG TABLET PO SCH (08:55)
[2019-05-06] MEDS: CARVEDILOL 3.125 MG TABLET PO SCH (08:55)
[2019-05-06] MEDS: THEOPHYLLINE ER 300 MG TABLET PO SCH (08:55)
[2019-05-06] MEDS: DORZOLAMIDE 2% OPH SOLN 10 ML BOTTLE BOTH EYES SCH (08:56)
[2019-05-06] MEDS: APIXABAN 2.5 MG TABLET PO SCH (08:56)
[2019-05-06] MEDS: BRIMONIDINE 0.2% OPH SOLN 5 ML BOTTLE BOTH EYES SCH (08:56)
[2019-05-06] MEDS ORDERED: predniSONE 20 MG TABLET PO SCH (09:00)
[2019-05-09] MEDS ORDERED: predniSONE 20 MG TABLET PO SCH (09:00)
== END 2019-05-06 12:20 | DRG 190 ==
LOC: EDUNIT# → EDBD → N.ED 15:50 → N.EDINP 18:19 → N.TELES 18:36 → N.ICU 04-30 18:56 → N.TELEN 05-02 10:28
PROVIDERS: ADMIT Family Medicine; ATTEND Family Medicine